=== PATIENT | female | born 2000 | race Caucasian/White ===

== ENCOUNTER 2023-12-15 05:50 | Inpatient (IN) | payer OTHER ==
[2023-12-15 06:46] VITALS: BMI 29.8
[2023-12-15] MEDS: ELECTROLYTE-148 SOLN 1,000 ML IV SCH (06:50)
[2023-12-15 07:25] LABS: BASO % 0.3 % (0-2.0); EOS % 0.6 % (0-4.5); HEMATOCRIT 39.7 % (32.4-45.2); HEMOGLOBIN 13.5 GM/dL (10.7-15.3); LYMPH % 13.6 % (8-40); MCH 31.3 pg (25.7-33.7); MCHC 33.9 g/dl (32.0-36.0); MEAN CELL VOLUME 92.2 fl (80-96); MONO % 6.3 % (3.8-10.2); NEUT % 79.2 % (42.8-82.8); PLATELET COUNT 166 10^3/uL (134-434); RBC 4.31 M/mm3 (3.60-5.2); RDW 13.9 % (11.6-15.6); RETICULOCYTES 1.03 % (0.5-1.5); WHITE BLOOD COUNT 11.3 K/mm3 (4.0-10.0)
[2023-12-15 07:38] LABS: POTASSIUM 4.5 mmol/L (3.5-5.1)
[2023-12-15 07:40] LABS: GAMMA GLUTAMYL TRANSPEPTIDASE 8 U/L (5-85)
[2023-12-15 07:42] LABS: CALCIUM 9.8 mg/dL (8.5-10.1)
[2023-12-15 07:44] LABS: SGOT/AST 44 U/L (15-37); SGPT/ALT 29 U/L (13-61)
[2023-12-15 07:44] LABS: BLOOD UREA NITROGEN 9.4 mg/dL (7-18)
[2023-12-15 07:45] LABS: URIC ACID 5.9 mg/dL (2.6-7.2)
[2023-12-15 07:46] LABS: CREATININE 0.7 mg/dL (0.55-1.3)
[2023-12-15 08:07] LABS: INR 0.91 (0.83-1.09); PROTHROMBIN TIME (PATIENT) 10.3 SEC (9.7-13.0)
[2023-12-15 08:10] LABS: ACTIVATED PTT 26.1 SECONDS (25.2-36.5)
[2023-12-15] MEDS ORDERED: FENTANYL/BUPIVACAINE/NS/PF - PCEA - 50 ML DISP.SYRIN EP ONE ×3 (08:48→17:06)
[2023-12-15] MEDS ORDERED: ONDANSETRON 4 MG/2 ML VIAL ONE (09:10)
[2023-12-15] MEDS: ONDANSETRON 4 MG/2 ML VIAL IVPUSH ONE (09:14)
[2023-12-15] MEDS: FENTANYL/BUPIVACAINE/NS/PF - PCEA - 50 ML DISP.SYRIN EP SCH (09:30)
[2023-12-15] MEDS ORDERED: NALOXONE HCL 0.4 MG/ML VIAL IVPUSH PRN (09:38)
[2023-12-15] MEDS ORDERED: OXYTOCIN 30 UNITS in 0.9% NS 30 UNIT/500 ML INFUS.BAG IVPB ONE (09:48)
[2023-12-15] MEDS: OXYTOCIN 30 UNITS in 0.9% NS 30 UNIT/500 ML INFUS.BAG IVPB SCH (10:00)
[2023-12-15 13:03] LABS: HIV INTERPRETATION NEGATIVE (NEGATIVE)
[2023-12-15] MEDS ORDERED: IBUPROFEN 800 MG/8 ML IJ IVPB PRN (19:33)
[2023-12-15] MEDS ORDERED: METHYLERGONOVINE MALEATE 0.2 MG/1 ML AMP IM PRN (19:33)
[2023-12-15] MEDS ORDERED: ACETAMINOPHEN 325 MG TABLET (FP) PO PRN (19:33)
[2023-12-15] MEDS ORDERED: morphine SULFATE/PF 1 MG/2 ML (2cc Syringe - QUVA) ONE (20:10)
[2023-12-15] MEDS ORDERED: FENTANYL CITRATE/PF 50 MCG/ML VIAL ONE (20:10)
[2023-12-15] MEDS ORDERED: OXYTOCIN 20 UNITS in 0.9% NS 20 UNIT/1,000 ML INFUS.BAG IV ONE (21:40)
[2023-12-15] MEDS: OXYTOCIN 20 UNITS in 0.9% NS 20 UNIT/1,000 ML INFUS.BAG IV SCH (21:40)
[2023-12-15] MEDS ORDERED: NIFEdipine E.R. 30 MG TABLET PO ONE (22:52)
[2023-12-15] MEDS: NIFEdipine E.R. 30 MG TABLET PO ONE (22:55)
[2023-12-15] MEDS ORDERED: LABETALOL HCL 200 MG TABLET (FP) ONE (23:48)
[2023-12-15] MEDS: LABETALOL HCL 200 MG TABLET (FP) PO SCH (23:50)
[2023-12-16] MEDS: DINOPROSTONE 10 MG VAGINAL SUPPOSITORY VG ONE (00:35)
[2023-12-16] MEDS ORDERED: oxyCODONE HCL 5 MG TABLET PO PRN (07:33)
[2023-12-16 07:41] LABS: BASO % 0.1 % (0-2.0); HEMATOCRIT 28.1 % (32.4-45.2); HEMOGLOBIN 9.3 GM/dL (10.7-15.3); LYMPH % 8.7 % (8-40); MCH 31.1 pg (25.7-33.7); MCHC 33.2 g/dl (32.0-36.0); MEAN CELL VOLUME 93.6 fl (80-96); MEAN PLT VOLUME 10.1 fl (7.5-11.1); MONO % 7.9 % (3.8-10.2); NEUT % 83.3 % (42.8-82.8); PLATELET COUNT 130 10^3/uL (134-434); RBC 3.01 M/mm3 (3.60-5.2); RDW 14.2 % (11.6-15.6); WHITE BLOOD COUNT 14.9 K/mm3 (4.0-10.0)
[2023-12-16] MEDS: PRENATAL VITAMINS W/ FOLIC ACID TABLET (FP) PO SCH (10:36)
[2023-12-16] MEDS: FERROUS SO4 325 MG TABLET (FP) PO SCH (10:42)
[2023-12-16] MEDS: ACETAMINOPHEN 1000 MG/100 ML BAG IVPB PRN (12:17)
[2023-12-16] MEDS: IBUPROFEN 600 MG TABLET (FP) PO PRN (17:23)
[2023-12-16] MEDS: SIMETHICONE 80 MG TAB.CHEW (FP) PO PRN (17:23)
[2023-12-16] MEDS: oxyCODONE HCL 5 MG TABLET PO PRN (21:03)
[2023-12-16] MEDS: SENNOSIDES/DOCUSATE COMBO (SENNA PLUS) TABLET (UD) PO PRN (21:03)
[2023-12-17] MEDS: BISACODYL 10 MG SUPP.RECT RC PRN (17:27)
[2023-12-17 21:52] VITALS: RESP 18
[2023-12-18 09:36] VITALS: BP 113/77; PULSE 87; TEMP 98.6
== END 2023-12-18 13:50 | disposition home or self-care (01) | DRG 540 ==
LOC: JDEL 05:50 → JLDR 06:25 → J3W 12-16 01:51
PROVIDERS: ADMIT Obstetrics & Gynecology; ATTEND Obstetrics & Gynecology
PROC: 10D00Z1 Extraction of Products of Conception, Low, Open Approach (ICD-10-PCS; principal; 2023-12-15)
DX: O48.0 Post-term pregnancy (principal); O62.0 Primary inadequate contractions; O13.4 Gestational [pregnancy-induced] hypertension without significant proteinuria, complicating childbirth; O69.81X0 Labor and delivery complicated by cord around neck, without compression, not applicable or unspecified; O62.2 Other uterine inertia; Z3A.40 40 weeks gestation of pregnancy; Z37.0 Single live birth
CPT/HCPCS: 36415; 80048; 82977; 83010; 84450; 84460; 84550; 85025; 85045; 85610; 85730; 86780; 86850; 86900; 86901; 87389; 88307-TC; 94010; J0131